=== PATIENT | male | born 1960 | race Caucasian/White ===

== ENCOUNTER 2021-04-22 14:11 | Inpatient (IN) ==
[2021-04-22] MEDS ORDERED: Isovue-370 500 ML BOTTLE IVP ONE (14:17)
[2021-04-22 14:46] LABS: Hematocrit 50.1 % (37.5-50.1); Hemoglobin 17.4 g/dL (12.9-16.9); Mean Corpuscular HGB Conc 34.7 g/dL (31.6-35.5); Mean Corpuscular Hemoglobin 29.7 pg (28.0-33.3); Mean Corpuscular Volume 85.6 fL (83.0-100.0); Mean Platelet Volume 10.2 fL (9.4-12.4); Platelet Count 321 K/mcL (140-400); Red Blood Count 5.85 M/mcL (4.19-5.50); Red Cell Distribution Width 13.2 % (11.5-14.5)
[2021-04-22 14:54] LABS: Bilirubin,Urine Negative (Negative); Blood,Urine Negative (Negative); Clarity,Urine Clear (Clear); Color,Urine Light-Yellow (Yellow); Glucose,Urine (UA) 500 mg/dL (Normal); Ketones,Urine Negative (Negative); Leukocyte Esterase,Urine Negative (Negative); Mucus,Urine Few per lpf (None-Few); Nitrite,Urine Negative (Negative); PH,Urine 6.5 pH Units (5.0-8.0); Protein,Urine >=300 mg/dL (Neg-Trace); RBC,Urine 0-3 per hpf (0-3); Specific Gravity,Urine > 1.030 (1.010-1.025); Urobilinogen,Urine Normal (Normal); WBC,Urine 0-3 per hpf (0-3)
[2021-04-22 15:05] LABS: Prothrombin Time 11.1 Seconds (9.4-12.1)
[2021-04-22 15:07] LABS: Activated Partial Thrombo Time 35.9 Seconds (26.0-36.0); BUN/Creatinine Ratio 16 (6-26); Blood Urea Nitrogen 16 mg/dL (8-23); Calcium 9.8 mg/dL (8.6-10.3); Carbon Dioxide 23 mEq/L (23-29); Chloride 103 mEq/L (98-107); Glucose 289 mg/dL (70-105); Osmolality,Calculated 294 (280-300); Potassium 4.5 mEq/L (3.5-5.1); Sodium 136 mEq/L (136-145); eGFR For African Americans > 60 (> 60); eGFR For Non-African Americans > 60 (> 60)
[2021-04-22 15:08] LABS: Troponin I 0.03 ng/mL (< 0.04)
[2021-04-22 15:32] LABS: Amphetamine Screen,Urine Positive ng/mL (Cutoff=1000); Barbiturate Screen,Urine Negative ng/mL (Cutoff=200); Benzodiazepines Screen,Urine Positive ng/mL (Cutoff=200); Cannabinoid Screen,Urine Negative ng/mL (Cutoff = 50); Cocaine Screen,Urine Negative ng/mL (Cutoff= 300); Opiate Screen,Urine Negative ng/mL (Cutoff=300); Phencyclidine Screen,Urine Negative ng/mL (Cutoff=25)
[2021-04-22] MEDS ORDERED: Aspirin 325 MG TABLET PO ONE (15:39)
[2021-04-22] MEDS ORDERED: Naloxone 0.4 MG/ML INJ IVP PRN (15:57)
[2021-04-22] MEDS ORDERED: Perflutren Lipid Microsphere 1.3 ML in 0.9 % Sodium Chloride 8.7 ML IVP PRN (15:57)
[2021-04-22] MEDS ORDERED: Dextrose Gel 15 GM/37.5 ML TUBE PO PRN ×2 (16:04)
[2021-04-22] MEDS ORDERED: D5% in Water 1,000 ML IVC PRN (16:04)
[2021-04-22] MEDS ORDERED: *HR* Dextrose 50 % in Water (Syg) 50 ML SYRINGE IVP PRN (16:04)
[2021-04-23 02:26] LABS: Prothrombin Time 11.6 Seconds (9.4-12.1)
[2021-04-23 02:59] LABS: Alanine Aminotransferase 11 Units/L (7-52); Albumin 3.5 g/dL (3.5-5.7); Albumin/Globulin Ratio 0.9 (1.1-2.2); Alkaline Phosphatase 79 Units/L (34-104); Aspartate Amino Transferase 11 Units/L (13-39); BUN/Creatinine Ratio 21 (6-26); Bilirubin,Total 0.4 mg/dL (0.3-1.0); Blood Urea Nitrogen 18 mg/dL (8-23); Calcium 9.1 mg/dL (8.6-10.3); Carbon Dioxide 21 mEq/L (23-29); Chloride 106 mEq/L (98-107); Chol/HDL Ratio 7.5 (0-4.9); Cholesterol 261 mg/dL (< 200); Globulin 3.7 g/dL (2.4-3.5); Glucose 227 mg/dL (70-105); HDL Cholesterol 35 mg/dL (40-59); LDL Cholesterol,Calculated 170 mg/dL (< 100); Osmolality,Calculated 291 (280-300); Potassium 3.8 mEq/L (3.5-5.1); Sodium 136 mEq/L (136-145); Total Protein 7.2 g/dL (6.4-8.9); Triglycerides 278 mg/dL (< 150); Troponin I < 0.03 ng/mL (< 0.04); eGFR For African Americans > 60 (> 60); eGFR For Non-African Americans > 60 (> 60)
[2021-04-23 03:24] LABS: Estimated Average Glucose 295 mg/dl; Hemoglobin A1C 11.9 %
[2021-04-23] MEDS: *HR* Enoxaparin 40 MG/0.4 ML SYRINGE SQ SCH (05:28)
[2021-04-23] MEDS ORDERED: Aspirin Enteric Coated 81 MG Tablet PO SCH (09:00)
[2021-04-23] MEDS ORDERED: *HR* LORazepam 2 MG/ML VIAL IVP ONE (13:30)
[2021-04-24] MEDS: *HR* Enoxaparin 40 MG/0.4 ML SYRINGE SQ SCH (05:38)
[2021-04-24] MEDS ORDERED: *HR* Succinylcholine 200 MG/10 ML VIAL IVP ONE (07:57)
[2021-04-24] MEDS ORDERED: Lidocaine -MPF 2% 5 ML VIAL ONE (07:57)
[2021-04-24] MEDS ORDERED: Ondansetron 4 MG/2 ML VIAL ONE (07:57)
[2021-04-24] MEDS ORDERED: Lidocaine HCL 4 ML Topical Solution (Laryng-O-Jet Kit Sterile Pak) TP ONE (07:57)
[2021-04-24] MEDS ORDERED: *HR* Propofol 200 MG/20 ML VIAL IVP ONE (07:57)
[2021-04-24] MEDS ORDERED: *HR* Rocuronium Bromide 50 MG/5 ML VIAL ONE (08:27)
[2021-04-24] MEDS ORDERED: Ondansetron 4 MG/2 ML VIAL IVP PRN (08:32)
[2021-04-24] MEDS ORDERED: Albuterol 2.5 MG/3 ML NEBULIZER IH PRN (08:32)
[2021-04-24] MEDS ORDERED: *HR* FentaNYL (PF) 100 MCG/2 ML VIAL IVP ONE (09:57)
[2021-04-24] MEDS: Aspirin 81 MG TAB.CHEW GTUBE SCH (12:59)
[2021-04-24] MEDS: amLODIPine 5 MG TABLET PO SCH (12:59)
[2021-04-24] MEDS ORDERED: Isovue-370 500 ML BOTTLE IVP ONE (15:31)
[2021-04-24] MEDS: ALPRAZolam 0.5 MG TABLET PO SCH ×2 (17:47→21:58)
[2021-04-24] MEDS ORDERED: Ipratropium/Albuterol Neb 3 ML IH PRN (21:19)
[2021-04-24] MEDS ORDERED: Dextrose Gel 15 GM/37.5 ML TUBE PO PRN ×2 (23:33)
[2021-04-24] MEDS ORDERED: *HR* Dextrose 50 % in Water (Syg) 50 ML SYRINGE IVP PRN (23:33)
[2021-04-24] MEDS ORDERED: D5% in Water 1,000 ML IVC PRN (23:33)
[2021-04-25] MEDS: Insulin LISPRO 300 UNITS/3 ML VIAL SUBQ SCH ×4 (01:01→17:29)
[2021-04-25 02:50] LABS: Hematocrit 50.8 % (37.5-50.1); Hemoglobin 16.9 g/dL (12.9-16.9); Mean Corpuscular HGB Conc 33.3 g/dL (31.6-35.5); Mean Corpuscular Hemoglobin 29.3 pg (28.0-33.3); Mean Corpuscular Volume 88.2 fL (83.0-100.0); Mean Platelet Volume 10.7 fL (9.4-12.4); Platelet Count 300 K/mcL (140-400); Red Blood Count 5.76 M/mcL (4.19-5.50); Red Cell Distribution Width 13.1 % (11.5-14.5)
[2021-04-25 02:54] LABS: White Blood Count 15.1 K/mcL (4.3-11.1)
[2021-04-25 03:39] LABS: BUN/Creatinine Ratio 24 (6-26); Blood Urea Nitrogen 29 mg/dL (8-23); Calcium 9.8 mg/dL (8.6-10.3); Carbon Dioxide 17 mEq/L (23-29); Chloride 105 mEq/L (98-107); Glucose 362 mg/dL (70-105); Osmolality,Calculated 300 (280-300); Potassium 4.1 mEq/L (3.5-5.1); Sodium 135 mEq/L (136-145); eGFR For African Americans > 60 (> 60); eGFR For Non-African Americans > 60 (> 60)
[2021-04-25] MEDS: *HR* Enoxaparin 40 MG/0.4 ML SYRINGE SQ SCH (05:42)
[2021-04-25] MEDS: amLODIPine 5 MG TABLET PO SCH (08:44)
[2021-04-25] MEDS: ALPRAZolam 0.5 MG TABLET PO SCH (08:45)
[2021-04-25] MEDS: Aspirin 81 MG TAB.CHEW GTUBE SCH (08:45)
[2021-04-25] MEDS: Piperacillin/Tazobactam 3.375 GM in 0.9 % Sodium Chloride Mini Bag 100 ML IVPB SCH (15:34)
[2021-04-25] MEDS: Insulin DETEMIR 100 UNIT/ML X5UNITS SUBQ SCH (20:24)
[2021-04-26] MEDS: Insulin LISPRO 300 UNITS/3 ML VIAL SUBQ SCH ×5 (00:50→23:16)
[2021-04-26] MEDS: Piperacillin/Tazobactam 3.375 GM in 0.9 % Sodium Chloride Mini Bag 100 ML IVPB SCH ×4 (00:50→23:12)
[2021-04-26 02:00] LABS: Hematocrit 47.2 % (37.5-50.1); Hemoglobin 16.3 g/dL (12.9-16.9); Mean Corpuscular HGB Conc 34.5 g/dL (31.6-35.5); Mean Corpuscular Volume 86.9 fL (83.0-100.0); Mean Platelet Volume 10.5 fL (9.4-12.4); Platelet Count 319 K/mcL (140-400); Red Blood Count 5.43 M/mcL (4.19-5.50); Red Cell Distribution Width 13.2 % (11.5-14.5); White Blood Count 14.4 K/mcL (4.3-11.1)
[2021-04-26 02:36] LABS: BUN/Creatinine Ratio 30 (6-26); Blood Urea Nitrogen 40 mg/dL (8-23); Calcium 9.4 mg/dL (8.6-10.3); Carbon Dioxide 22 mEq/L (23-29); Chloride 106 mEq/L (98-107); Glucose 414 mg/dL (70-105); Osmolality,Calculated 307 (280-300); Potassium 4.6 mEq/L (3.5-5.1); Sodium 135 mEq/L (136-145); eGFR For African Americans > 60 (> 60); eGFR For Non-African Americans 55 (> 60)
[2021-04-26] MEDS: *HR* Enoxaparin 40 MG/0.4 ML SYRINGE SQ SCH (05:45)
[2021-04-26] MEDS: Aspirin 81 MG TAB.CHEW GTUBE SCH (09:07)
[2021-04-26] MEDS: ALPRAZolam 0.5 MG TABLET PO PRN (14:27)
[2021-04-26] MEDS: Insulin DETEMIR 100 UNIT/ML X5UNITS SUBQ SCH (20:25)
[2021-04-27 05:33] LABS: Hematocrit 45.6 % (37.5-50.1); Hemoglobin 15.8 g/dL (12.9-16.9); Mean Corpuscular HGB Conc 34.6 g/dL (31.6-35.5); Mean Corpuscular Hemoglobin 30.6 pg (28.0-33.3); Mean Corpuscular Volume 88.4 fL (83.0-100.0); Mean Platelet Volume 10.6 fL (9.4-12.4); Platelet Count 285 K/mcL (140-400); Red Blood Count 5.16 M/mcL (4.19-5.50); Red Cell Distribution Width 13.1 % (11.5-14.5)
[2021-04-27] MEDS: Insulin LISPRO 300 UNITS/3 ML VIAL SUBQ SCH ×4 (05:33→22:45)
[2021-04-27] MEDS: *HR* Enoxaparin 40 MG/0.4 ML SYRINGE SQ SCH (05:33)
[2021-04-27 06:10] LABS: BUN/Creatinine Ratio 33 (6-26); Blood Urea Nitrogen 38 mg/dL (8-23); Calcium 9.1 mg/dL (8.6-10.3); Carbon Dioxide 26 mEq/L (23-29); Chloride 110 mEq/L (98-107); Glucose 291 mg/dL (70-105); Osmolality,Calculated 318 (280-300); Sodium 144 mEq/L (136-145); eGFR For African Americans > 60 (> 60); eGFR For Non-African Americans > 60 (> 60)
[2021-04-27] MEDS: Piperacillin/Tazobactam 3.375 GM in 0.9 % Sodium Chloride Mini Bag 100 ML IVPB SCH ×3 (08:11→22:46)
[2021-04-27] MEDS: Aspirin 81 MG TAB.CHEW GTUBE SCH ×2 (08:16→12:03)
[2021-04-27] MEDS: Insulin DETEMIR 100 UNIT/ML X5UNITS SUBQ SCH ×2 (11:07→19:43)
[2021-04-27] MEDS: ALPRAZolam 0.5 MG TABLET PO PRN (12:02)
[2021-04-27] MEDS ORDERED: polyethylene glycoL 3350 17 GM POWD.PACK PO ONE (17:46)
[2021-04-28 03:17] LABS: Hematocrit 46.6 % (37.5-50.1); Hemoglobin 15.7 g/dL (12.9-16.9); Mean Corpuscular HGB Conc 33.7 g/dL (31.6-35.5); Mean Corpuscular Hemoglobin 29.9 pg (28.0-33.3); Mean Corpuscular Volume 88.8 fL (83.0-100.0); Mean Platelet Volume 10.6 fL (9.4-12.4); Platelet Count 268 K/mcL (140-400); Red Blood Count 5.25 M/mcL (4.19-5.50); Red Cell Distribution Width 12.9 % (11.5-14.5); White Blood Count 12.8 K/mcL (4.3-11.1)
[2021-04-28 03:41] LABS: BUN/Creatinine Ratio 32 (6-26); Blood Urea Nitrogen 32 mg/dL (8-23); Carbon Dioxide 26 mEq/L (23-29); Chloride 110 mEq/L (98-107); Glucose 262 mg/dL (70-105); Osmolality,Calculated 310 (280-300); Potassium 3.8 mEq/L (3.5-5.1); Sodium 142 mEq/L (136-145); eGFR For African Americans > 60 (> 60); eGFR For Non-African Americans > 60 (> 60)
[2021-04-28] MEDS: Insulin LISPRO 300 UNITS/3 ML VIAL SUBQ SCH ×3 (04:59→17:37)
[2021-04-28] MEDS: *HR* Enoxaparin 40 MG/0.4 ML SYRINGE SQ SCH (05:00)
[2021-04-28] MEDS: Aspirin 81 MG TAB.CHEW GTUBE SCH (08:04)
[2021-04-28] MEDS: Piperacillin/Tazobactam 3.375 GM in 0.9 % Sodium Chloride Mini Bag 100 ML IVPB SCH ×2 (08:04→16:35)
[2021-04-28] MEDS: Insulin DETEMIR 100 UNIT/ML X5UNITS SUBQ SCH ×2 (08:04→20:15)
[2021-04-28] MEDS: ALPRAZolam 0.5 MG TABLET PO PRN (20:27)
[2021-04-29] MEDS: Insulin LISPRO 300 UNITS/3 ML VIAL SUBQ SCH ×5 (00:26→20:15)
[2021-04-29] MEDS: Piperacillin/Tazobactam 3.375 GM in 0.9 % Sodium Chloride Mini Bag 100 ML IVPB SCH ×3 (00:26→18:45)
[2021-04-29 05:01] LABS: Hematocrit 45.5 % (37.5-50.1); Hemoglobin 15.8 g/dL (12.9-16.9); Mean Corpuscular HGB Conc 34.7 g/dL (31.6-35.5); Mean Corpuscular Volume 86.5 fL (83.0-100.0); Mean Platelet Volume 10.9 fL (9.4-12.4); Platelet Count 255 K/mcL (140-400); Red Blood Count 5.26 M/mcL (4.19-5.50); Red Cell Distribution Width 12.9 % (11.5-14.5); White Blood Count 12.9 K/mcL (4.3-11.1)
[2021-04-29 05:24] LABS: BUN/Creatinine Ratio 28 (6-26); Blood Urea Nitrogen 29 mg/dL (8-23); Carbon Dioxide 25 mEq/L (23-29); Chloride 107 mEq/L (98-107); Glucose 298 mg/dL (70-105); Osmolality,Calculated 309 (280-300); Potassium 3.8 mEq/L (3.5-5.1); Sodium 141 mEq/L (136-145); eGFR For African Americans > 60 (> 60); eGFR For Non-African Americans > 60 (> 60)
[2021-04-29] MEDS: *HR* Enoxaparin 40 MG/0.4 ML SYRINGE SQ SCH (05:38)
[2021-04-29] MEDS: Insulin DETEMIR 100 UNIT/ML X5UNITS SUBQ SCH ×2 (09:20→20:16)
[2021-04-29] MEDS: Aspirin 81 MG TAB.CHEW GTUBE SCH (09:20)
[2021-04-30] MEDS: Piperacillin/Tazobactam 3.375 GM in 0.9 % Sodium Chloride Mini Bag 100 ML IVPB SCH ×3 (00:24→16:52)
[2021-04-30] MEDS: *HR* Enoxaparin 40 MG/0.4 ML SYRINGE SQ SCH (04:26)
[2021-04-30] MEDS: Insulin LISPRO 300 UNITS/3 ML VIAL SUBQ SCH ×4 (07:55→20:17)
[2021-04-30] MEDS: lisinopriL 5 MG TABLET PO SCH (10:38)
[2021-04-30] MEDS: Aspirin 81 MG TAB.CHEW GTUBE SCH (10:38)
[2021-04-30] MEDS: ALPRAZolam 0.5 MG TABLET PO PRN (10:55)
[2021-04-30] MEDS: Insulin DETEMIR 100 UNIT/ML X5UNITS SUBQ SCH ×2 (10:55→20:17)
[2021-04-30] MEDS ORDERED: Ondansetron 4 MG/2 ML VIAL IVP PRN (22:50)
[2021-05-01] MEDS: ALPRAZolam 0.5 MG TABLET PO PRN ×2 (01:55→17:29)
[2021-05-01] MEDS: *HR* Enoxaparin 40 MG/0.4 ML SYRINGE SQ SCH (04:43)
[2021-05-01] MEDS: Aspirin 81 MG TAB.CHEW GTUBE SCH (08:24)
[2021-05-01] MEDS: lisinopriL 5 MG TABLET PO SCH (08:25)
[2021-05-01] MEDS: Insulin DETEMIR 100 UNIT/ML X5UNITS SUBQ SCH (08:41)
[2021-05-01] MEDS: Insulin LISPRO 300 UNITS/3 ML VIAL SUBQ SCH ×3 (08:42→17:26)
[2021-05-01] MEDS ORDERED: Insulin DETEMIR 100 UNIT/ML X5UNITS SUBQ ONE (09:50)
[2021-05-01 15:13] VITALS: BP 151/96; PULSE 96; TEMP 97.9; O2SAT 91
[2021-05-01 15:49] LABS: Influenza A PCR Negative (Negative); Influenza B PCR Negative (Negative); Resp. Syncytial Virus PCR Negative (Negative)
[2021-05-01 15:50] LABS: SARS-CoV-2 by PCR (In House) Negative (Negative)
[2021-05-01] MEDS ORDERED: Insulin DETEMIR 100 UNIT/ML X5UNITS SUBQ SCH (21:00)
== END 2021-05-01 17:51 | disposition other institution (70) | DRG 64 ==
LOC: 3BNU 14:11 → EMEROOARM 14:11 → 3BNU 16:32 → SUATTDRO 17:50
PROVIDERS: ADMIT Pharmacist; ATTEND Registered Nurse